=== PATIENT | male | born 1950 | race Caucasian/White ===

== ENCOUNTER 2017-08-18 08:43 | Outpatient (CLI) | payer OTHER ==
[~2017-08-18] VITALS: Ht 152.4 cm; Wt 72.6 kg
[~2017-08-18 08:43] MED LIST: AMOX1TAB12 PO; IBUPROFEN800 MG PO; MEDROL4 MG PO
== END 2017-08-18 09:00 | disposition home or self-care (01) ==
LOC: OFIC 805 08:43
DX: H61.23 Impacted cerumen, bilateral (principal); H60.8X3 Other otitis externa, bilateral; J30.89 Other allergic rhinitis

== ENCOUNTER → 2017-08-21 | Outpatient (CLI) | payer OTHER | END | disposition home or self-care (01) | LOC: RAD 13:59 | DX: I10 Essential (primary) hypertension (principal); M54.5 Low back pain; E78.89 Other lipoprotein metabolism disorders; E55.9 Vitamin D deficiency, unspecified ==

== ENCOUNTER 2017-08-22 08:16 | Outpatient (CLI) | payer OTHER ==
[~2017-08-22] VITALS: Ht 152.4 cm; Wt 72.6 kg
== END 2017-08-22 08:30 | disposition home or self-care (01) ==
LOC: OFIC 805 08:16
DX: H60.8X2 Other otitis externa, left ear (principal); H61.22 Impacted cerumen, left ear

== ENCOUNTER 2017-09-04 06:40 | Outpatient (CLI) | payer OTHER | END 2017-09-04 06:55 | disposition home or self-care (01) | LOC: LAB 06:40 | DX: I10 Essential (primary) hypertension (principal); M54.5 Low back pain; E78.9 Disorder of lipoprotein metabolism, unspecified; E55.9 Vitamin D deficiency, unspecified ==

== ENCOUNTER 2018-08-08 12:35 | Outpatient (CLI) | payer OTHER | END 2018-08-08 12:40 | disposition home or self-care (01) | LOC: RAD 12:35 | DX: I10 Essential (primary) hypertension (principal); M54.5 Low back pain; E78.89 Other lipoprotein metabolism disorders; E55.9 Vitamin D deficiency, unspecified; Z01.810 Encounter for preprocedural cardiovascular examination; E03.8 Other specified hypothyroidism; M54.89 Other dorsalgia ==

== ENCOUNTER 2018-08-09 07:15 | Outpatient (CLI) | payer OTHER | END 2018-08-09 07:33 | disposition home or self-care (01) | LOC: LAB 07:15 | DX: M54.5 Low back pain (principal); I10 Essential (primary) hypertension; E78.89 Other lipoprotein metabolism disorders; E55.9 Vitamin D deficiency, unspecified; Z01.810 Encounter for preprocedural cardiovascular examination; E03.8 Other specified hypothyroidism; Z12.11 Encounter for screening for malignant neoplasm of colon ==

== ENCOUNTER 2018-08-30 07:52 | Outpatient (CLI) | payer OTHER | END 2018-08-30 08:06 | disposition home or self-care (01) | LOC: SONOGRAMA 07:52 | DX: M54.5 Low back pain (principal); E55.9 Vitamin D deficiency, unspecified; E78.89 Other lipoprotein metabolism disorders; Z01.810 Encounter for preprocedural cardiovascular examination; E03.8 Other specified hypothyroidism; K80.12 Calculus of gallbladder with acute and chronic cholecystitis without obstruction; K80.20 Calculus of gallbladder without cholecystitis without obstruction; N41.0 Acute prostatitis ==

== ENCOUNTER 2018-10-30 11:55 | Outpatient (CLI) | payer OTHER | END 2018-10-30 15:34 | disposition home or self-care (01) | LOC: MRI 11:55 | DX: M75.102 Unspecified rotator cuff tear or rupture of left shoulder, not specified as traumatic (principal) | CPT/HCPCS: 73221 ==

== ENCOUNTER 2019-02-13 13:13 | Outpatient (CLI) | payer OTHER | END 2019-02-13 13:15 | disposition home or self-care (01) | LOC: MRI 13:13 | DX: M54.5 Low back pain (principal); M54.11 Radiculopathy, occipito-atlanto-axial region | CPT/HCPCS: 72148 ==

== ENCOUNTER 2019-04-08 07:04 | Outpatient (CLI) | payer OTHER | END 2019-04-08 07:25 | disposition home or self-care (01) | LOC: LAB 07:04 | DX: M54.5 Low back pain (principal); E78.89 Other lipoprotein metabolism disorders; E55.9 Vitamin D deficiency, unspecified; Z01.810 Encounter for preprocedural cardiovascular examination; E03.8 Other specified hypothyroidism; I11.9 Hypertensive heart disease without heart failure; K80.12 Calculus of gallbladder with acute and chronic cholecystitis without obstruction; K80.20 Calculus of gallbladder without cholecystitis without obstruction; N41.0 Acute prostatitis ==

== ENCOUNTER 2019-07-29 06:46 | Outpatient (CLI) | payer OTHER | END 2019-07-29 07:17 | disposition home or self-care (01) | LOC: LAB 06:46 | DX: M54.5 Low back pain (principal); E78.49 Other hyperlipidemia; E55.9 Vitamin D deficiency, unspecified; E03.8 Other specified hypothyroidism; I11.9 Hypertensive heart disease without heart failure; K80.12 Calculus of gallbladder with acute and chronic cholecystitis without obstruction; K80.20 Calculus of gallbladder without cholecystitis without obstruction; R97.20 Elevated prostate specific antigen [PSA]; N41.0 Acute prostatitis ==

== ENCOUNTER → 2019-09-05 06:44 | Outpatient (CLI) | payer OTHER | END | disposition home or self-care (01) | LOC: LAB 06:44 | DX: R97.21 Rising PSA following treatment for malignant neoplasm of prostate (principal) ==

== ENCOUNTER 2019-10-29 06:31 | Outpatient (CLI) | payer OTHER | END 2019-10-29 06:45 | disposition home or self-care (01) | LOC: LAB 06:31 | DX: M54.5 Low back pain (principal); E78.9 Disorder of lipoprotein metabolism, unspecified; E55.9 Vitamin D deficiency, unspecified; E03.8 Other specified hypothyroidism; I11.9 Hypertensive heart disease without heart failure; K80.12 Calculus of gallbladder with acute and chronic cholecystitis without obstruction; K80.20 Calculus of gallbladder without cholecystitis without obstruction; R97.20 Elevated prostate specific antigen [PSA]; Z01.810 Encounter for preprocedural cardiovascular examination; Z72.0 Tobacco use; N41.0 Acute prostatitis ==

== ENCOUNTER 2020-01-24 10:16 | Outpatient (CLI) | payer OTHER | END 2020-01-24 10:29 | disposition home or self-care (01) | LOC: SONOGRAMA 10:16 | PROVIDERS: ATTEND Physical Medicine & Rehabilitation | DX: K80.18 Calculus of gallbladder with other cholecystitis without obstruction (principal) ==

== ENCOUNTER → 2020-02-10 10:28 | Outpatient (CLI) | payer OTHER | END | disposition home or self-care (01) | LOC: LAB 10:28 | PROVIDERS: ATTEND Internal Medicine | DX: N41.0 Acute prostatitis (principal); M54.5 Low back pain; E78.89 Other lipoprotein metabolism disorders; E55.9 Vitamin D deficiency, unspecified; E03.8 Other specified hypothyroidism; I11.9 Hypertensive heart disease without heart failure; K80.12 Calculus of gallbladder with acute and chronic cholecystitis without obstruction; K80.20 Calculus of gallbladder without cholecystitis without obstruction; R97.20 Elevated prostate specific antigen [PSA]; Z01.810 Encounter for preprocedural cardiovascular examination; Z72.0 Tobacco use; Z12.11 Encounter for screening for malignant neoplasm of colon ==

== ENCOUNTER 2020-02-11 11:55 | Outpatient (CLI) | payer OTHER | END 2020-02-11 12:01 | disposition home or self-care (01) | LOC: LAB 11:55 | PROVIDERS: ATTEND Internal Medicine | DX: M54.5 Low back pain (principal); E78.89 Other lipoprotein metabolism disorders; E55.9 Vitamin D deficiency, unspecified; E03.8 Other specified hypothyroidism; I11.9 Hypertensive heart disease without heart failure; K80.12 Calculus of gallbladder with acute and chronic cholecystitis without obstruction; K80.20 Calculus of gallbladder without cholecystitis without obstruction; R97.20 Elevated prostate specific antigen [PSA]; Z01.810 Encounter for preprocedural cardiovascular examination; Z72.0 Tobacco use; N41.0 Acute prostatitis ==

== ENCOUNTER 2020-06-18 06:26 | Outpatient (CLI) | payer OTHER | END 2020-06-18 06:35 | disposition home or self-care (01) | LOC: LAB 06:26 | PROVIDERS: ATTEND Internal Medicine | DX: E03.8 Other specified hypothyroidism (principal); E78.89 Other lipoprotein metabolism disorders; E55.9 Vitamin D deficiency, unspecified; I11.9 Hypertensive heart disease without heart failure; K80.20 Calculus of gallbladder without cholecystitis without obstruction; Z72.0 Tobacco use ==

== ENCOUNTER 2020-09-18 06:16 | Outpatient (CLI) | payer OTHER | END 2020-09-18 06:28 | disposition home or self-care (01) | LOC: LAB 06:16 | PROVIDERS: ATTEND Internal Medicine | DX: E78.89 Other lipoprotein metabolism disorders (principal); E55.9 Vitamin D deficiency, unspecified; E03.9 Hypothyroidism, unspecified; I11.9 Hypertensive heart disease without heart failure; K80.20 Calculus of gallbladder without cholecystitis without obstruction; Z72.0 Tobacco use; N41.0 Acute prostatitis ==

== ENCOUNTER → 2020-11-30 06:25 | Outpatient (CLI) | payer OTHER | END | disposition home or self-care (01) | LOC: LAB 06:25 | PROVIDERS: ATTEND Internal Medicine | DX: E78.89 Other lipoprotein metabolism disorders (principal); E55.9 Vitamin D deficiency, unspecified; E03.8 Other specified hypothyroidism; I11.9 Hypertensive heart disease without heart failure; K80.20 Calculus of gallbladder without cholecystitis without obstruction; Z72.0 Tobacco use; N41.0 Acute prostatitis ==

== ENCOUNTER 2021-02-09 11:53 | Outpatient (CLI) | payer OTHER | END 2021-02-09 12:01 | disposition home or self-care (01) | LOC: RAD 11:53 | PROVIDERS: ATTEND General Practice | DX: R07.89 Other chest pain (principal); T14.8XXA Other injury of unspecified body region, initial encounter ==

== ENCOUNTER → 2021-03-08 06:25 | Outpatient (CLI) | payer OTHER ==
[~2021-03-08 06:25] MED LIST changes: +CLONAZEPAM0.5 MG PO; +KETO10TA2 PO; +NORFLEX100MG PO
== END | disposition home or self-care (01) ==
LOC: LAB 06:25
PROVIDERS: ATTEND Emergency Medicine Pediatric Emergency Medicine
DX: E03.8 Other specified hypothyroidism (principal); E78.89 Other lipoprotein metabolism disorders; I11.9 Hypertensive heart disease without heart failure; N41.0 Acute prostatitis; Z72.0 Tobacco use; K80.20 Calculus of gallbladder without cholecystitis without obstruction; E55.9 Vitamin D deficiency, unspecified

== ENCOUNTER 2021-04-07 07:56 | Emergency (ER) | payer OTHER ==
[~2021-04-07] VITALS: Ht 170.2 cm; Wt 77.1 kg
[~2021-04-07 07:56] MED LIST changes: -CLONAZEPAM0.5 MG PO; -KETO10TA2 PO; -NORFLEX100MG PO
[2021-04-07] MEDS ORDERED: KETO10TA2 PO (13:38)
[2021-04-07] MEDS ORDERED: NORFLEX100MG PO (13:38)
[2021-04-07] MEDS ORDERED: CLONAZEPAM0.5 MG PO (13:38)
== END 2021-04-07 13:45 | disposition home or self-care (01) ==
LOC: ER 07:56
DX: R07.89 Other chest pain (principal); F06.4 Anxiety disorder due to known physiological condition

== ENCOUNTER 2021-04-08 07:11 | Outpatient (CLI) | payer OTHER ==
[~2021-04-08 07:11] MED LIST changes: +CLONAZEPAM0.5 MG PO; +KETO10TA2 PO; +NORFLEX100MG PO
== END 2021-04-08 07:21 | disposition home or self-care (01) ==
LOC: LAB 07:11
PROVIDERS: ATTEND General Practice
DX: R91.8 Other nonspecific abnormal finding of lung field (principal)

== ENCOUNTER 2021-05-19 06:33 | Outpatient (CLI) | payer OTHER | END 2021-05-19 15:00 | disposition home or self-care (01) | LOC: LAB 06:33 | DX: C34.11 Malignant neoplasm of upper lobe, right bronchus or lung (principal); E03.8 Other specified hypothyroidism ==